=== PATIENT | female | born 1960 | race African-American/Black ===

== ENCOUNTER 2022-10-04 16:32 | Inpatient (IN) | payer MEDICAID ==
[~2022-10-04] VITALS: Ht 170.2 cm; Wt 44.0 kg
[2022-10-04] MEDS ORDERED: NACL 0.9% 1,000 ML IV ONE ×2 (16:45→23:00)
[2022-10-04 17:11] VITALS: BP_SYST 135
[2022-10-04 17:52] LABS: BASOPHILS # (AUTO) 0.1 K/uL (0.0-0.2); BASOPHILS % (AUTO) 0.7 % (0.0-2.0); EOSINOPHILS % (AUTO) 0.4 % (0.0-4.0); HEMATOCRIT 40.7 % (36-48); HEMOGLOBIN 13.6 g/dL (12.0-16.0); LYMPHOCYTES # (AUTO) 1.1 K/uL (1.0-5.5); LYMPHOCYTES % (AUTO) 14.3 % (20.5-51.5); MEAN CORPUSCULAR HEMOGLOBIN 33 pg (27-31); MEAN CORPUSCULAR HGB CONC 34 % (32-36); MEAN CORPUSCULAR VOLUME 99 fL (79.0-98.0); MONOCYTES # (AUTO) 0.4 K/uL (0.0-1.0); MONOCYTES % (AUTO) 4.6 % (1.7-9.3); NEUTROPHILS # (AUTO) 6.4 K/uL (1.8-7.7); PLATELET COUNT (AUTO) 323 K/uL (130-430); RED BLOOD CELL COUNT(AUTO) 4.11 MIL/uL (4.2-6.2); RED CELL DISTRIBUTION WIDTH 13.8 % (9.0-15.0)
[2022-10-04 18:00] LABS: ALBUMIN 3.5 g/dL (3.4-4.8); CALCIUM 8.7 mg/dL (8.4-11.0); CREATININE 0.64 mg/dL (0.55-1.30); TOTAL BILIRUBIN 0.4 mg/dL (0.0-1.0)
[2022-10-04] MEDS ORDERED: LORazepam 2 MG/ML VIAL IM ONE (20:15)
[2022-10-04] MEDS ORDERED: DIPHENHYDRAMINE INJ 50 MG/ML VIAL IM ONE (20:30)
[2022-10-04] MEDS ORDERED: ACETAMINOPHEN 325 MG TABLET PO PRN (22:00)
[2022-10-04] MEDS ORDERED: MUPIROCIN 2% TOPICAL OINTMENT 22 GM NS PRN (22:00)
[2022-10-04] MEDS ORDERED: ONDANSETRON HCL 4 MG/2 ML VIAL IVP PRN (22:00)
[2022-10-04] MEDS ORDERED: DOCUSATE SODIUM 100 MG CAPSULE PO PRN (22:00)
[2022-10-04] MEDS ORDERED: MAGNESIUM SULFATE 50 ML IV PRN (22:00)
[2022-10-05 00:56] VITALS: BP_SYST 142
[2022-10-05] MEDS ORDERED: PIPERACILLIN/TAZO 3.375 GM in NS 50 ML IV SCH (04:00)
[2022-10-05] MEDS ORDERED: PIPERACILLIN/TAZOBACTAM 3.375 GM/VIAL (ZOSYN) IV ONE (04:35)
[2022-10-05] MEDS: MORPHINE 2 MG/ML INJ. SYRINGE IVP PRN ×2 (05:51→15:33)
[2022-10-05 07:21] LABS: CALCIUM 8.3 mg/dL (8.4-11.0); CREATININE 0.55 mg/dL (0.55-1.30)
[2022-10-05 07:24] LABS: BASOPHILS % (AUTO) 0.6 % (0.0-2.0); EOSINOPHILS # (AUTO) 0.1 K/uL (0.0-0.4); EOSINOPHILS % (AUTO) 0.8 % (0.0-4.0); HEMATOCRIT 38.8 % (36-48); LYMPHOCYTES # (AUTO) 1.3 K/uL (1.0-5.5); LYMPHOCYTES % (AUTO) 20.3 % (20.5-51.5); MEAN CORPUSCULAR HEMOGLOBIN 33 pg (27-31); MEAN CORPUSCULAR HGB CONC 34 % (32-36); MEAN CORPUSCULAR VOLUME 100 fL (79.0-98.0); MONOCYTES # (AUTO) 0.3 K/uL (0.0-1.0); MONOCYTES % (AUTO) 5.3 % (1.7-9.3); NEUTROPHILS # (AUTO) 4.5 K/uL (1.8-7.7); PLATELET COUNT (AUTO) 273 K/uL (130-430); RED BLOOD CELL COUNT(AUTO) 3.89 MIL/uL (4.2-6.2); RED CELL DISTRIBUTION WIDTH 13.9 % (9.0-15.0); WHITE BLOOD COUNT (AUTO) 6.2 K/uL (4.8-10.8)
[2022-10-05 11:32] VITALS: BP_SYST 154
[2022-10-05] MEDS: PIPERACILLIN/TAZO 3.375 GM in NS 50 ML IV SCH ×3 (15:34→23:52)
[2022-10-05 17:27] VITALS: BP_SYST 152
[2022-10-05] MEDS ORDERED: LORazepam 2 MG/ML VIAL IVP ONE (18:15)
[2022-10-05] MEDS: NACL 0.9% 1,000 ML IV SCH (19:06)
[2022-10-05] MEDS: POTASSIUM CHLORIDE 20 MEQ TAB.PRT.SR PO PRN (19:14)
[2022-10-05 20:00] VITALS: BP_SYST 130
[2022-10-05 20:05] LABS: BILIRUBIN,URINE NEGATIVE (NEGATIVE); CLARITY/URINE CLEAR (CLEAR); COLOR,URINE YELLOW (YELLOW); GLUCOSE,URINE NEGATIVE (NEGATIVE); KETONES,URINE NEGATIVE (NEGATIVE); LEUKOCYTE ESTERASE ,URINE NEGATIVE (NEGATIVE); NITRITE, URINE NEGATIVE (NEGATIVE); PH,URINE 7.5 (5.0-8.0); PROTEIN URINE NEGATIVE (NEGATIVE)
[2022-10-05 20:11] LABS: BLOOD, URINE TRACE (NEGATIVE)
[2022-10-05 20:14] LABS: BACTERIA,URINE None Seen /HPF (None Seen); MUCUS,URINE 1+ /LPF (None Seen); WBC,URINE 0-3 /HPF (0-3)
[2022-10-06] VITALS (10 sets, daily range): BP systolic 101–168
[2022-10-06] MEDS: NACL 0.9% 1,000 ML IV SCH (05:08)
[2022-10-06 06:00] LABS: BASOPHILS % (AUTO) 0.4 % (0.0-2.0); EOSINOPHILS % (AUTO) 0.6 % (0.0-4.0); HEMATOCRIT 35.6 % (36-48); HEMOGLOBIN 11.8 g/dL (12.0-16.0); LYMPHOCYTES # (AUTO) 0.4 K/uL (1.0-5.5); LYMPHOCYTES % (AUTO) 7.5 % (20.5-51.5); MEAN CORPUSCULAR HEMOGLOBIN 33 pg (27-31); MEAN CORPUSCULAR HGB CONC 33 % (32-36); MEAN CORPUSCULAR VOLUME 98 fL (79.0-98.0); MONOCYTES # (AUTO) 0.1 K/uL (0.0-1.0); MONOCYTES % (AUTO) 1.1 % (1.7-9.3); NEUTROPHILS # (AUTO) 5.3 K/uL (1.8-7.7); NEUTROPHILS % (AUTO) 90.4 % (40.0-70.0); PLATELET COUNT (AUTO) 225 K/uL (130-430); RED BLOOD CELL COUNT(AUTO) 3.62 MIL/uL (4.2-6.2); RED CELL DISTRIBUTION WIDTH 13.8 % (9.0-15.0); WHITE BLOOD COUNT (AUTO) 5.8 K/uL (4.8-10.8)
[2022-10-06] MEDS: PIPERACILLIN/TAZO 3.375 GM in NS 50 ML IV SCH ×3 (06:11→18:30)
[2022-10-06 06:17] LABS: INR 1.2 (0.8-1.2); PROTHROMBIN TIME 12.5 SECS (9.5-12.5)
[2022-10-06 06:19] LABS: CALCIUM 8.1 mg/dL (8.4-11.0); CREATININE 0.6 mg/dL (0.55-1.30)
[2022-10-06] MEDS ORDERED: ceFAZolin SODIUM 1 GM VIAL ONE (10:10)
[2022-10-06] MEDS ORDERED: NS IRRIG SOLN 1000 ML IR ONE (10:10)
[2022-10-06] MEDS ORDERED: KETOROLAC TROMETHAMINE 30 MG VIAL ONE (10:10)
[2022-10-06] MEDS ORDERED: BUPIVACAINE /EPINEPHRINE/PF 0.5% 30 ML VIAL INJ ONE (10:10)
[2022-10-06] MEDS ORDERED: VANCOMYCIN HCL 1000 MG/VIAL IV ONE (10:10)
[2022-10-06] MEDS ORDERED: DEXAMETHASONE SOD PHOSPHATE 4 MG/ML VIAL ONE (10:10)
[2022-10-06] MEDS ORDERED: SUGAMMADEX SODIUM 200 MG/2 ML VIAL IV ONE (10:10)
[2022-10-06] MEDS ORDERED: fentaNYL CITRATE/PF 100 MCG/2 ML AMP ONE (10:10)
[2022-10-06] MEDS ORDERED: LIDOCAINE 2%, 20 ML MDV ONE (10:10)
[2022-10-06] MEDS ORDERED: WATER FOR IRRIGATION,STERILE 1,000 ML IRRIG.SOLN IR ONE (10:10)
[2022-10-06] MEDS ORDERED: DESFLURANE 15 MIN GAS INH ONE (10:10)
[2022-10-06] MEDS ORDERED: ONDANSETRON HCL 4 MG/2 ML VIAL ONE (10:10)
[2022-10-06] MEDS ORDERED: PROPOFOL 200MG/ 20ML VIAL (DIPRIVAN) IV ONE (10:10)
[2022-10-06] MEDS ORDERED: LR 1,000 ML IV.SOLN IV ONE (10:10)
[2022-10-06] MEDS ORDERED: ROCURONIUM BROMIDE 10 MG/ML (ZEMURON) ONE (10:10)
[2022-10-06] MEDS ORDERED: NS 1000 ML IV.SOLN IV ONE (10:10)
[2022-10-06] MEDS ORDERED: MIDAZOLAM HCL 2 MG/2 ML VIAL (VERSED) ONE (10:10)
[2022-10-06] MEDS ORDERED: TRANEXAMIC ACID 1,000 MG/10 ML VIAL ONE (10:10)
[2022-10-06] MEDS ORDERED: MIDAZOLAM HCL 2 MG/2 ML VIAL (VERSED) IVP PRN (11:00)
[2022-10-06] MEDS ORDERED: MEPERIDINE HCL/PF 25 MG/ML DISP.SYRIN IVP PRN (11:00)
[2022-10-06] MEDS ORDERED: LABETALOL 100 MG/ 20ML VIAL IVP PRN (11:00)
[2022-10-06] MEDS ORDERED: hydrALAZINE HCL 20 MG/ML VIAL IVP PRN (11:00)
[2022-10-06] MEDS ORDERED: METOCLOPRAMIDE HCL 10 MG/2 ML VIAL IVP PRN (11:00)
[2022-10-06] MEDS ORDERED: HYDROmorphone 1 MG/ML INJ. CARTRIDGE IVP PRN ×2 (11:00)
[2022-10-06] MEDS: LR 1,000 ML IV SCH (15:31)
[2022-10-06] MEDS: ceFAZolin SODIUM 2 GM in D5W 50 ML IV SCH ×2 (15:32→21:01)
[2022-10-06] MEDS: MORPHINE 2 MG/ML INJ. SYRINGE IVP PRN ×2 (18:31→22:55)
[2022-10-07] VITALS: BP_SYST 119
[2022-10-07] MEDS: PIPERACILLIN/TAZO 3.375 GM in NS 50 ML IV SCH ×4 (00:18→17:12)
[2022-10-07] MEDS: LR 1,000 ML IV SCH ×3 (03:38→20:51)
[2022-10-07 05:11] LABS: BASOPHILS % (AUTO) 0.4 % (0.0-2.0); EOSINOPHILS # (AUTO) 0.1 K/uL (0.0-0.4); EOSINOPHILS % (AUTO) 1.1 % (0.0-4.0); HEMATOCRIT 24.5 % (36-48); HEMOGLOBIN 8.2 g/dL (12.0-16.0); LYMPHOCYTES % (AUTO) 21.3 % (20.5-51.5); MEAN CORPUSCULAR HEMOGLOBIN 33 pg (27-31); MEAN CORPUSCULAR HGB CONC 34 % (32-36); MEAN CORPUSCULAR VOLUME 98 fL (79.0-98.0); MONOCYTES # (AUTO) 0.1 K/uL (0.0-1.0); MONOCYTES % (AUTO) 1.3 % (1.7-9.3); NEUTROPHILS # (AUTO) 3.6 K/uL (1.8-7.7); NEUTROPHILS % (AUTO) 75.9 % (40.0-70.0); PLATELET COUNT (AUTO) 159 K/uL (130-430); RED CELL DISTRIBUTION WIDTH 13.5 % (9.0-15.0); WHITE BLOOD COUNT (AUTO) 4.8 K/uL (4.8-10.8)
[2022-10-07 05:38] LABS: CREATININE 0.58 mg/dL (0.55-1.30)
[2022-10-07] MEDS: ceFAZolin SODIUM 2 GM in D5W 50 ML IV SCH (05:56)
[2022-10-07 08:00] VITALS: BP_SYST 115
[2022-10-07] MEDS: MORPHINE 2 MG/ML INJ. SYRINGE IVP PRN ×3 (09:59→22:44)
[2022-10-07 11:24] VITALS: BP_SYST 113
[2022-10-07 15:18] VITALS: BP_SYST 95
[2022-10-07 15:19] VITALS: BP_SYST 120
[2022-10-07 20:00] VITALS: BP_SYST 120
[2022-10-08] VITALS: BP_SYST 107
[2022-10-08] MEDS: PIPERACILLIN/TAZO 3.375 GM in NS 50 ML IV SCH ×5 (00:13→23:01)
[2022-10-08 05:46] LABS: BASOPHILS % (AUTO) 0.3 % (0.0-2.0); EOSINOPHILS # (AUTO) 0.1 K/uL (0.0-0.4); EOSINOPHILS % (AUTO) 2.2 % (0.0-4.0); HEMATOCRIT 22.1 % (36-48); HEMOGLOBIN 7.5 g/dL (12.0-16.0); LYMPHOCYTES # (AUTO) 0.6 K/uL (1.0-5.5); LYMPHOCYTES % (AUTO) 13.6 % (20.5-51.5); MEAN CORPUSCULAR HEMOGLOBIN 33 pg (27-31); MEAN CORPUSCULAR HGB CONC 34 % (32-36); MEAN CORPUSCULAR VOLUME 98 fL (79.0-98.0); MONOCYTES # (AUTO) 0.1 K/uL (0.0-1.0); MONOCYTES % (AUTO) 2.6 % (1.7-9.3); NEUTROPHILS # (AUTO) 3.5 K/uL (1.8-7.7); NEUTROPHILS % (AUTO) 81.3 % (40.0-70.0); PLATELET COUNT (AUTO) 157 K/uL (130-430); RED BLOOD CELL COUNT(AUTO) 2.26 MIL/uL (4.2-6.2); RED CELL DISTRIBUTION WIDTH 13.9 % (9.0-15.0); WHITE BLOOD COUNT (AUTO) 4.4 K/uL (4.8-10.8)
[2022-10-08 06:00] LABS: CALCIUM 7.9 mg/dL (8.4-11.0); CREATININE 0.45 mg/dL (0.55-1.30)
[2022-10-08 08:00] VITALS: BP_SYST 128
[2022-10-08 12:00] VITALS: BP_SYST 116
[2022-10-08 16:00] VITALS: BP_SYST 101
[2022-10-08 20:00] VITALS: BP_SYST 121
[2022-10-08] MEDS: MORPHINE 2 MG/ML INJ. SYRINGE IVP PRN (20:21)
[2022-10-09 01:06] VITALS: BP_SYST 99
[2022-10-09] MEDS: PIPERACILLIN/TAZO 3.375 GM in NS 50 ML IV SCH (05:45)
[2022-10-09 08:00] VITALS: BP_SYST 148
[2022-10-09 10:13] LABS: BASOPHILS % (AUTO) 0.5 % (0.0-2.0); EOSINOPHILS # (AUTO) 0.1 K/uL (0.0-0.4); EOSINOPHILS % (AUTO) 1.7 % (0.0-4.0); HEMOGLOBIN 7.6 g/dL (12.0-16.0); LYMPHOCYTES # (AUTO) 0.6 K/uL (1.0-5.5); LYMPHOCYTES % (AUTO) 13.9 % (20.5-51.5); MEAN CORPUSCULAR HEMOGLOBIN 33 pg (27-31); MEAN CORPUSCULAR HGB CONC 33 % (32-36); MEAN CORPUSCULAR VOLUME 99 fL (79.0-98.0); MONOCYTES # (AUTO) 0.1 K/uL (0.0-1.0); MONOCYTES % (AUTO) 3.3 % (1.7-9.3); NEUTROPHILS # (AUTO) 3.4 K/uL (1.8-7.7); NEUTROPHILS % (AUTO) 80.6 % (40.0-70.0); PLATELET COUNT (AUTO) 185 K/uL (130-430); RED BLOOD CELL COUNT(AUTO) 2.32 MIL/uL (4.2-6.2); RED CELL DISTRIBUTION WIDTH 14.1 % (9.0-15.0)
[2022-10-09 10:22] LABS: WHITE BLOOD COUNT (AUTO) 4.2 K/uL (4.8-10.8)
[2022-10-09 10:35] LABS: CALCIUM 8.1 mg/dL (8.4-11.0); CREATININE 0.57 mg/dL (0.55-1.30)
[2022-10-09] MEDS ORDERED: NALOXONE HCL 0.4 MG/ML AMP (NARCAN) IVP PRN (11:45)
[2022-10-09] MEDS ORDERED: ACETAMINOPHEN 325 MG TABLET PO PRN ×2 (11:45)
[2022-10-09] MEDS ORDERED: OXYCODONE/ACETAMINOPHEN 5-325 TABLET PO PRN (11:45)
[2022-10-09 11:52] VITALS: BP_SYST 99
[2022-10-09] MEDS: POTASSIUM CHLORIDE 20 MEQ TAB.PRT.SR PO PRN (14:11)
[2022-10-09 16:13] VITALS: BP_SYST 123
[2022-10-09 19:31] VITALS: BP_SYST 109
[2022-10-09] MEDS: ASPIRIN 81 MG TAB.CHEW PO SCH (20:23)
[2022-10-09] MEDS: ACETAMINOPHEN/CODEINE 300 MG-30 MG TABLET PO PRN (20:24)
[2022-10-10 00:34] VITALS: BP_SYST 99
[2022-10-10] MEDS: ACETAMINOPHEN/CODEINE 300 MG-30 MG TABLET PO PRN ×2 (04:12→09:30)
[2022-10-10 07:18] LABS: CALCIUM 8.4 mg/dL (8.4-11.0); CREATININE 0.46 mg/dL (0.55-1.30)
[2022-10-10 07:37] LABS: BASOPHILS % (AUTO) 0.5 % (0.0-2.0); EOSINOPHILS # (AUTO) 0.2 K/uL (0.0-0.4); EOSINOPHILS % (AUTO) 3.4 % (0.0-4.0); HEMATOCRIT 23.1 % (36-48); HEMOGLOBIN 7.8 g/dL (12.0-16.0); LYMPHOCYTES # (AUTO) 1.2 K/uL (1.0-5.5); LYMPHOCYTES % (AUTO) 23.7 % (20.5-51.5); MEAN CORPUSCULAR HEMOGLOBIN 33 pg (27-31); MEAN CORPUSCULAR HGB CONC 34 % (32-36); MEAN CORPUSCULAR VOLUME 99 fL (79.0-98.0); MONOCYTES # (AUTO) 0.4 K/uL (0.0-1.0); MONOCYTES % (AUTO) 7.3 % (1.7-9.3); NEUTROPHILS # (AUTO) 3.3 K/uL (1.8-7.7); NEUTROPHILS % (AUTO) 65.1 % (40.0-70.0); PLATELET COUNT (AUTO) 232 K/uL (130-430); RED BLOOD CELL COUNT(AUTO) 2.34 MIL/uL (4.2-6.2); RED CELL DISTRIBUTION WIDTH 13.8 % (9.0-15.0)
[2022-10-10 08:00] VITALS: BP_SYST 107
[2022-10-10] MEDS: ASPIRIN 81 MG TAB.CHEW PO SCH ×2 (09:20→20:54)
[2022-10-10 11:38] VITALS: BP_SYST 116
[2022-10-10 17:14] VITALS: BP_SYST 124
[2022-10-10 20:00] VITALS: BP_SYST 121
[2022-10-11 04:53] VITALS: BP_SYST 107
[2022-10-11 06:45] LABS: BASOPHILS % (AUTO) 0.6 % (0.0-2.0); EOSINOPHILS # (AUTO) 0.1 K/uL (0.0-0.4); EOSINOPHILS % (AUTO) 2.7 % (0.0-4.0); HEMATOCRIT 22.3 % (36-48); HEMOGLOBIN 7.5 g/dL (12.0-16.0); LYMPHOCYTES # (AUTO) 1.3 K/uL (1.0-5.5); LYMPHOCYTES % (AUTO) 24.6 % (20.5-51.5); MEAN CORPUSCULAR HEMOGLOBIN 34 pg (27-31); MEAN CORPUSCULAR HGB CONC 34 % (32-36); MEAN CORPUSCULAR VOLUME 99 fL (79.0-98.0); MONOCYTES # (AUTO) 0.5 K/uL (0.0-1.0); MONOCYTES % (AUTO) 9.2 % (1.7-9.3); NEUTROPHILS # (AUTO) 3.4 K/uL (1.8-7.7); NEUTROPHILS % (AUTO) 62.9 % (40.0-70.0); PLATELET COUNT (AUTO) 291 K/uL (130-430); RED BLOOD CELL COUNT(AUTO) 2.25 MIL/uL (4.2-6.2); RED CELL DISTRIBUTION WIDTH 13.8 % (9.0-15.0); WHITE BLOOD COUNT (AUTO) 5.5 K/uL (4.8-10.8)
[2022-10-11 07:24] LABS: ALBUMIN 2.4 g/dL (3.4-4.8); CALCIUM 8.4 mg/dL (8.4-11.0); CREATININE 0.52 mg/dL (0.55-1.30); TOTAL BILIRUBIN 0.4 mg/dL (0.0-1.0)
[2022-10-11 08:30] VITALS: BP_SYST 97
[2022-10-11] MEDS: ASPIRIN 81 MG TAB.CHEW PO SCH ×2 (10:36→21:01)
[2022-10-11 11:35] VITALS: BP_SYST 91
[2022-10-11 15:48] VITALS: BP_SYST 108
[2022-10-11 20:00] VITALS: BP_SYST 95
[2022-10-12] VITALS (8 sets, daily range): BP systolic 88–117
[2022-10-12] MEDS: ASPIRIN 81 MG TAB.CHEW PO SCH ×2 (09:28→21:01)
[2022-10-13 00:34] VITALS: BP_SYST 115
[2022-10-13 05:22] LABS: BASOPHILS % (AUTO) 0.6 % (0.0-2.0); EOSINOPHILS # (AUTO) 0.1 K/uL (0.0-0.4); EOSINOPHILS % (AUTO) 1.4 % (0.0-4.0); HEMATOCRIT 23.1 % (36-48); HEMOGLOBIN 7.8 g/dL (12.0-16.0); LYMPHOCYTES % (AUTO) 13.9 % (20.5-51.5); MEAN CORPUSCULAR HEMOGLOBIN 34 pg (27-31); MEAN CORPUSCULAR HGB CONC 34 % (32-36); MEAN CORPUSCULAR VOLUME 100 fL (79.0-98.0); MONOCYTES # (AUTO) 0.7 K/uL (0.0-1.0); MONOCYTES % (AUTO) 9.8 % (1.7-9.3); NEUTROPHILS # (AUTO) 5.5 K/uL (1.8-7.7); NEUTROPHILS % (AUTO) 74.3 % (40.0-70.0); PLATELET COUNT (AUTO) 391 K/uL (130-430); RED BLOOD CELL COUNT(AUTO) 2.31 MIL/uL (4.2-6.2); RED CELL DISTRIBUTION WIDTH 14.1 % (9.0-15.0); WHITE BLOOD COUNT (AUTO) 7.4 K/uL (4.8-10.8)
[2022-10-13 05:45] LABS: CALCIUM 8.4 mg/dL (8.4-11.0); CREATININE 0.55 mg/dL (0.55-1.30)
[2022-10-13 08:20] VITALS: BP_SYST 89; BP_SYST 98
[2022-10-13] MEDS: ASPIRIN 81 MG TAB.CHEW PO SCH (08:41)
[2022-10-13 12:00] VITALS: BP_SYST 77
[2022-10-13 12:15] VITALS: BP_SYST 90
[2022-10-13 15:49] VITALS: BP_SYST 90; BP_SYST 92
[2022-10-13] MEDS ORDERED: ASPI-858 PO (16:55)
[2022-10-13 18:32] VITALS: BP_SYST 92
== END 2022-10-13 20:35 | DRG 323 ==
LOC: SED 16:32 → SMU 23:00
PROVIDERS: ADMIT Internal Medicine; ATTEND Internal Medicine
PROC: 0SRB049 Replacement of Left Hip Joint with Ceramic on Polyethylene Synthetic Substitute, Cemented, Open Approach (ICD-10-PCS; principal; 2022-10-06 10:15)
DX: S72.142A Displaced intertrochanteric fracture of left femur, initial encounter for closed fracture (principal); F03.90 Unspecified dementia, unspecified severity, without behavioral disturbance, psychotic disturbance, mood disturbance, and anxiety; D64.9 Anemia, unspecified; E87.6 Hypokalemia; Z20.822 Contact with and (suspected) exposure to COVID-19; E83.52 Hypercalcemia; D72.819 Decreased white blood cell count, unspecified; R53.81 Other malaise; X58.XXXA Exposure to other specified factors, initial encounter; Z99.3 Dependence on wheelchair; Z90.49 Acquired absence of other specified parts of digestive tract; Y93.89 Activity, other specified; Y92.89 Other specified places as the place of occurrence of the external cause; Y99.8 Other external cause status; Z74.01 Bed confinement status
CPT/HCPCS: 36415; 71045; 71250-TC; 72170-TC; 73501; 73502; 76376; 80048; 80053; 81000; 83605; 83735; 85025; 85610-TC; 85730-TC; 86886; 86900; 86901; 87040; 87081; 87086; 88305; 88311; 92610-GN; 93005; 93306; 96361; 96365; 96372; 96375; 97110-GP; 97112-GP; 97116-GP; 97530-GP; 99285; J0690; J1100; J1200; J1885; J2001; J2060; J2270; J2405; J2543; J2704; J3010; J3370; J3465; J3490; J7030; J7060; J7120